=== PATIENT | female | born 1965 | race Native Hawaiian/Other Pacific Islander ===

== ENCOUNTER 2017-09-29 12:57 | Outpatient (CLI) | payer OTHER ==
[~2017-09-29 12:57] MED LIST: ALLERCLEAR10 MG PO; AMITRIPTYLIN75 MG PO; AMOXICILLIN250 M2 PO; CELEXA20 MG PO; SERT50TA PO
== END 2017-09-29 15:08 | disposition short-term general hospital (02) ==
LOC: AMB 12:57
DX: R00.1 Bradycardia, unspecified (principal)
CPT/HCPCS: A0425; A0427